=== PATIENT | female | born 2000 | race Hispanic/Latino ===

== ENCOUNTER 2023-06-17 23:41 | Emergency (ER) | payer MEDICAID, OTHER ==
[~2023-06-17] VITALS: Ht 170.2 cm; Wt 72.6 kg
[2023-06-18 01:46] LABS: BASOPHILS # (AUTO) 0.06 K/uL (0.00-0.20); BASOPHILS % (AUTO) 0.5 % (0.0-5.0); EOSINOPHILS # (AUTO) 0.15 K/uL (0.00-0.70); EOSINOPHILS % (AUTO) 1.2 % (0.0-8.0); HEMATOCRIT 34.9 % (36-48); IMMATURE GRANULOCYTE ABSOLUTE 0.02 K/uL (0-1); LYMPHOCYTES # (AUTO) 4.6 K/uL (1.0-4.8); LYMPHOCYTES % (AUTO) 36.5 % (21.0-51.0); MEAN CORPUSCULAR HEMOGLOBIN 28.8 pg (27.0-33.0); MEAN CORPUSCULAR HGB CONC 32.7 g/dL (32.0-36.0); MEAN CORPUSCULAR VOLUME 88.1 fL (79-99); MONOCYTES % (AUTO) 7.7 % (3.0-13.0); NEUTROPHILS # (AUTO) 6.8 K/uL (1.8-7.7); NEUTROPHILS % (AUTO) 53.9 % (40.0-77.0); PLATELET COUNT (AUTO) 269 K/uL (130-400); RED BLOOD CELL COUNT(AUTO) 3.96 MIL/uL (4.00-5.50); RED CELL DISTRIBUTION WIDTH 12.2 % (11.0-15.5); WHITE BLOOD COUNT (AUTO) 12.6 K/uL (4.8-10.8)
[2023-06-18 01:50] LABS: CREATININE 0.6 mg/dL (0.5-1.5); POTASSIUM 4.2 mmol/L (3.5-5.1)
[2023-06-18] MEDS: 0.9%NACL 1000ML 1,000 ML IV ONE (02:14)
[2023-06-18] MEDS: ACETAMINOPHEN 325 MG TAB PO ONE (02:14)
[2023-06-18 02:19] LABS: ALBUMIN 3.9 g/dL (3.5-5.0); BILIRUBIN,TOTAL 0.2 mg/dL (0.2-1.0); TOTAL PROTEIN, SERUM 7.3 g/dL (6.0-8.3)
[2023-06-18 02:20] LABS: APPEARANCE,URINE CLEAR (CLEAR); BILIRUBIN,URINE NEGATIVE (NEGATIVE); COLOR,URINE COLORLESS (YELLOW); GLUCOSE, URINE (UA) NEGATIVE (NEGATIVE); KETONES,URINE NEGATIVE (NEGATIVE); LEUKOCYTE ESTERASE ,URINE NEGATIVE Leu/uL (NEGATIVE); NITRATE,URINE NEGATIVE (NEGATIVE); OCCULT BLOOD,URINE NEGATIVE (NEGATIVE); PH,URINE 5.5 (5.0-8.0); PROTEIN,URINE NEGATIVE (NEGATIVE); UROBILINOGEN,URINE 0.2 mg/dL (0.2-1.0)
[2023-06-18 02:21] LABS: RBC,URINE 0-1 /HPF (0-1); SQUAMOUS EPITHELIAL CELL,UR RARE /HPF (0-2); WBC,URINE 0-1 /HPF (0-1)
[2023-06-18] MEDS ORDERED: DOCU-116 PO (02:46)
[2023-06-18] MEDS: LACTULOSE 20 GM/30 ML UDCUP PO ONE (02:56)
[2023-06-18 03:01] VITALS: BP 127/75; PULSE 94; RESP 18; O2SAT 99
== END 2023-06-18 03:01 | disposition home or self-care (01) ==
LOC: EDH 23:41
DX: O26.891 Other specified pregnancy related conditions, first trimester (principal); R10.2 Pelvic and perineal pain; Z3A.01 Less than 8 weeks gestation of pregnancy; Z90.49 Acquired absence of other specified parts of digestive tract
CPT/HCPCS: 99284; 80053; 84702; 83690; 85025; 81001; 36415; 96360; 76801; J7030

== ENCOUNTER 2023-08-11 02:19 | Emergency (ER) | payer MEDICAID ==
[~2023-08-11] VITALS: Ht 170.2 cm; Wt 76.7 kg
[~2023-08-11 02:19] MED LIST: DOCU-116 PO
[2023-08-11 02:37] LABS: ADD UA MICROSCOPIC YES; APPEARANCE,URINE CLEAR (CLEAR); BILIRUBIN,URINE NEGATIVE (NEGATIVE); COLOR,URINE YELLOW (YELLOW); GLUCOSE, URINE (UA) NEGATIVE (NEGATIVE); KETONES,URINE 100 mg/dL (NEGATIVE); LEUKOCYTE ESTERASE ,URINE NEGATIVE Leu/uL (NEGATIVE); NITRATE,URINE NEGATIVE (NEGATIVE); OCCULT BLOOD,URINE SMALL (NEGATIVE); PH,URINE 5.5 (5.0-8.0); PROTEIN,URINE 30 mg/dL (NEGATIVE); UROBILINOGEN,URINE 0.2 mg/dL (0.2-1.0)
[2023-08-11 02:38] LABS: BACTERIA,URINE RARE /HPF (None Seen); MUCUS,URINE RARE LPF (None Seen); SQUAMOUS EPITHELIAL CELL,UR FEW /HPF (0-2)
[2023-08-11 04:17] LABS: BASOPHILS # (AUTO) 0.03 K/uL (0.00-0.20); BASOPHILS % (AUTO) 0.3 % (0.0-5.0); EOSINOPHILS % (AUTO) 0.9 % (0.0-8.0); HEMATOCRIT 35.3 % (36-48); IMMATURE GRANULOCYTE ABSOLUTE 0.04 K/uL (0-1); LYMPHOCYTES # (AUTO) 2.4 K/uL (1.0-4.8); LYMPHOCYTES % (AUTO) 20.7 % (21.0-51.0); MEAN CORPUSCULAR HEMOGLOBIN 28.9 pg (27.0-33.0); MEAN CORPUSCULAR HGB CONC 34.3 g/dL (32.0-36.0); MEAN CORPUSCULAR VOLUME 84.4 fL (79-99); MONOCYTES # (AUTO) 0.6 K/uL (0.1-1.0); MONOCYTES % (AUTO) 5.3 % (3.0-13.0); NEUTROPHILS # (AUTO) 8.5 K/uL (1.8-7.7); NEUTROPHILS % (AUTO) 72.5 % (40.0-77.0); PLATELET COUNT (AUTO) 260 K/uL (130-400); RED BLOOD CELL COUNT(AUTO) 4.18 MIL/uL (4.00-5.50); RED CELL DISTRIBUTION WIDTH 12.7 % (11.0-15.5); WHITE BLOOD COUNT (AUTO) 11.7 K/uL (4.8-10.8)
[2023-08-11 04:23] LABS: CREATININE 0.5 mg/dL (0.5-1.0); POTASSIUM 3.5 mmol/L (3.5-5.1)
[2023-08-11 04:28] LABS: ALBUMIN 3.7 g/dL (3.5-5.0); BILIRUBIN,TOTAL 0.4 mg/dL (0.2-1.0); TOTAL PROTEIN, SERUM 7.7 g/dL (6.0-8.3)
[2023-08-11] MEDS: ONDANSETRON 4MG INJ IVP ONE (04:44)
[2023-08-11] MEDS: 0.9%NACL 1000ML 2,000 ML IV ONE (04:45)
[2023-08-11] MEDS ORDERED: ONDA-104 PO (05:04)
[2023-08-11 05:41] VITALS: BP 100/51; PULSE 76; RESP 18; O2SAT 100
== END 2023-08-11 05:42 | disposition home or self-care (01) ==
LOC: EDH 02:19
DX: O21.0 Mild hyperemesis gravidarum (principal); R10.2 Pelvic and perineal pain; Z3A.12 12 weeks gestation of pregnancy
CPT/HCPCS: 99285; 96374; 76801; 96361; 80053; 84702; 85025; 81001; 36415; J7030; J2405

== ENCOUNTER 2023-12-29 20:11 | Observation (INO) | payer MEDICAID ==
[~2023-12-29] VITALS: Ht 170.2 cm; Wt 90.3 kg
[~2023-12-29 20:11] MED LIST changes: +ONDA-104 PO
[2023-12-29 20:17] VITALS: BP 120/68; PULSE 114; RESP 20; TEMP 98.4
[2023-12-29 21:00] LABS: APPEARANCE,URINE CLOUDY (CLEAR); BILIRUBIN,URINE NEGATIVE (NEGATIVE); COLOR,URINE YELLOW (YELLOW); GLUCOSE, URINE (UA) NEGATIVE (NEGATIVE); KETONES,URINE >=80 mg/dL (NEGATIVE); LEUKOCYTE ESTERASE ,URINE 250 Leu/uL (NEGATIVE); NITRATE,URINE NEGATIVE (NEGATIVE); OCCULT BLOOD,URINE NEGATIVE (NEGATIVE); PROTEIN,URINE 30 mg/dL (NEGATIVE)
[2023-12-29 21:08] LABS: ADD UA MICROSCOPIC YES
[2023-12-29 21:11] LABS: SQUAMOUS EPITHELIAL CELL,UR MOD /HPF (0-2)
[2023-12-29] MEDS: LACTATED RINGERS 1000ML 1,000 ML IV SCH (21:46)
== END 2023-12-29 22:45 | disposition home or self-care (01) ==
LOC: EDH 20:11 → LDH 20:12
PROVIDERS: ADMIT Obstetrics & Gynecology; ATTEND Obstetrics & Gynecology
DX: O36.8130 Decreased fetal movements, third trimester, not applicable or unspecified (principal); Z3A.33 33 weeks gestation of pregnancy; Z79.899 Other long term (current) drug therapy
CPT/HCPCS: 96372; 96360; 87086; 81001; 76819; G0378 ×2; G0379; J3105; J7120 ×2; 96361